=== PATIENT | female | born 1955 | race Hispanic/Latino ===

== ENCOUNTER 2019-01-11 12:11 | Emergency (ER) | payer SELFPAY ==
[~2019-01-11] VITALS: Ht 165.1 cm; Wt 70.8 kg
[~2019-01-11 12:11] MED LIST: LEVOTHYROXINE75 MCG PO; LOSARTAN-HCTZ1 EAC2 PO; LOVASTATIN40 MG PO
--- OUTSIDE RECORDS SUMMARY | 2019-01-11 12:15 | XMS REPORT | Encounter Summary ---
Author Organization Unknown Address [address] [place] [address] Phone [phone] Care Team Providers Care Nutrition Teacher Name Role Phone Dr. Leif Fernandez 3 [phone] Jarad Schultz MD 126 [phone] Rukhsana Bianen OD 240 [phone] Reason for Visit Hypertensive disorder; Right ear pain/problem Instructions 1. Benign essential hypertension losartan 100 mg-hydrochlorothiazide 25 mg tablet amlodipine 10 mg tablet 2. Impacted cerumen in right ear 3. Screening for malignant neoplasm of colon 4. Screening for malignant neoplasm of breast MAMMO, screening, digital, bilateral - Nigerian Speaking Please call patient and schedule her an appointment. 5. Immunization Prevnar 13 (PF) 0.5 mL intramuscular syringe 6. Screening for osteoporosis bone density - Nigerian Speaking Please call patient and schedule her an appointment. Discussion Note: None recorded. Patient educational handouts: No information available. Plan of Care Reminders Provider Appointments Est Patient 10/06/2018 8:00AM Leif Luevano MD Lab None recorded. Referral None recorded. Procedures None recorded. Surgeries None recorded. Imaging MAMMO, Screening, Digital, Bilateral 09/08/2018 [facility] Bone Density 09/08/2018 [facility] Medications Name Start Date amlodipine 10 mg tablet Take 1 tablet every day by oral route as directed for 90 days. amlodipine 5 mg tablet Take 1 tablet every day by oral route as directed for 30 days. losartan 100 mg-hydrochlorothiazide 25 mg tablet Take 1 tablet every day by oral route. Medications Administered None recorded. Vitals Height Weight BMI Blood Pressure 5 ft 4 in 163.4 lbs 28 kg/m2 (1) 182/78 mm[Hg] (2) 180/82 mm[Hg] Lab Results None recorded. Allergies Code Code System Name Reaction Severity Status Onset NKDA Problems Name Status Onset Date Source Hypertensive Disorder Active 04/21/2018 Family History of Alzheimer's Disease Active 07/02/2018 Procedures Date Name Performed by 04/30/2018 Screening for Occult Blood in Feces Information not available Colonoscopy with Biopsy Information not available 09/08/2018 MAMMO, Screening, Digital, Bilateral [facility] [address] [place], [place] [id number] (Work Place) 09/08/2018 Bone Density [facility] [address] [place], [place] [id number] (Work Place) Vaccine List Vaccine Type influenza, unspecified formulation 03/18/2018 pneumococcal conjugate PCV 13 09/08/20180.5 mL Social History Smoking Status Never Smoker Past Encounters 09/08/2018 Benign Essential Hypertension; Impacted Cerumen in Right Ear; Screening for Malignant Neoplasm of Colon; Screening for Malignant Neoplasm of Breast; Immunization; Screening for Osteoporosis Leif Luevano MD: [address] [place] [phone], Ph. History of Present Illness Note:R ear tinnitus, hearing loss and pain since 3 days ago. Denies runny nose, nasal congestion, sore throat or cough.<div>BPs at home 150-160s/80-90s.</div> Review of Systems:ROS as noted in the HPI Review of Systems None recorded. Physical Exam General Adult Exam (male) Reported By: Patient Constitutional: General Appearance: healthy-appearing, overweight. Level of Distress: NAD. Ambulation: ambulating normally Psychiatric: Insight: good judgement. Mental Status: active and alert, normal mood, normal affect. Orientation: to time, to place, to person. Memory: recent memory normal, remote memory normal Eyes: Lids and Conjunctivae: non-injected, no discharge. EOM: EOMI ENMT: Ears: TMs clear, EAC ceruminous. Nose: no sinus tenderness. Lips, Teeth, and Gums: no mouth or lip ulcers. Oropharynx: moist mucous membranes, no erythema, no exudates Neck: Neck: supple, trachea midline. Lymph Nodes: no cervical LAD. Thyroid: no enlargement, non-tender Lungs: Auscultation: breath sounds normal Cardiovascular: Heart Auscultation: RRR, normal S1, normal S2, no murmurs. Neck vessels: no carotid bruits Musculoskeletal:: Motor Strength and Tone: normal, normal tone. Joints, Bones, and Muscles: normal movement of all extremities. Extremities: no edema Neurologic: Gait and Station: normal gait Skin: Inspection and palpation: no rash, no lesions
--- OUTSIDE RECORDS SUMMARY | 2019-01-11 12:15 | XMS REPORT | Encounter Summary ---
Author Organization Unknown Address [address] [place] [address] Phone [phone] Care Team Providers Care Swimming Pool Plasterer Helper Name Role Phone Dr. Leif Fernandez 3 [phone] Jarad Schultz MD 126 [phone] Reason for Visit lab only visit Instructions 1. Raised TSH level T4, free, serum T3, free, serum or plasma Discussion Note: None recorded. Patient educational handouts: No information available. Plan of Care Reminders Provider Appointments None recorded. Lab T4, Free, Serum 05/13/2018 [facility] T3, Free, Serum or Plasma 05/13/2018 [facility] Referral None recorded. Procedures None recorded. Surgeries None recorded. Imaging None recorded. Medications Name Start Date amlodipine 5 mg tablet Take 1 tablet every day by oral route as directed for 30 days. calcium PRN losartan 100 mg-hydrochlorothiazide 25 mg tablet Take 1 tablet every day by oral route. vitamin E PRN Medications Administered None recorded. Vitals None recorded. Lab Results Date Name Specimen Result Interpretation Description Value Range Status Address 04/21/2018 Lipid Panel, Serum High Cholesterol, Total 224 mg/dL <200 mg/dL Final [facility]: [address] Normal HDL Cholesterol 55 mg/dL >50 mg/dL Final [facility]: [address] Normal Triglycerides 123 mg/dL <150 mg/dL Final [facility]: [address] High LDL-cholesterol 144 mg/dL (calc) Final [facility]: [address] Normal Chol/hdlc Ratio 4.1 (calc) <5.0 (calc) Final [facility]: [address] High Non HDL Cholesterol 169 mg/dL (calc) <130 mg/dL (calc) Final [facility]: [address] 04/21/2018 CBC W/ Auto Diff Normal White Blood Cell Count 8.8 thousand/uL 3.8-10.8 thousand/uL Final [facility]: [address] Normal Red Blood Cell Count 4.17 million/uL 3.80-5.10 million/uL Final [facility]: [address] [place] Normal Hemoglobin 13.1 g/dL 11.7-15.5 g/dL Final [facility]: [address] Normal Hematocrit 38.3 % 35.0-45.0 % Final [facility]: [address] [place] Normal Mcv 91.8 fL 80.0-100.0 fL Final [facility]: [address] [place] Normal Mch 31.4 pg 27.0-33.0 pg Final [facility]: [address] E[address] [place] Normal Mchc 34.2 g/dL 32.0-36.0 g/dL Final [facility]: [address] [place] Normal Rdw 12.6 % 11.0-15.0 % Final [facility]: [address] [place] Normal Platelet Count 216 thousand/uL 140-400 thousand/uL Final [facility]: [address] Eraz[address] [place] Normal Mpv 12.2 fL 7.5-12.5 fL Final [facility]: [address] Eraz[address] [place] Normal Absolute Neutrophils 3951 cells/uL 4816-9072 cells/uL Final [facility]: [address] E[address] [place] Absolute Band Neutrophils Preliminary [facility]: [address] [place] Absolute Metamyelocytes Preliminary [facility]: [address] [place] Absolute Myelocytes Preliminary [facility]: [address], [place] Absolute Promyelocytes Preliminary [facility]: [address] E[address] [place] High Absolute Lymphocytes 4118 cells/uL 850-3900 cells/uL Final [facility]: [address] [place] Normal Absolute Monocytes 598 cells/uL 200-950 cells/uL Final [facility]: [address], [place] Normal Absolute Eosinophils 88 cells/uL 15-500 cells/uL Final [facility]: [address], [place] Normal Absolute Basophils 44 cells/uL 0-200 cells/uL Final [facility]: [address], [place] Absolute Blasts Preliminary [facility]: [address], [place] Absolute Nucleated RBC Preliminary [facility]: [address], [place] Normal Neutrophils 44.9 % Final [facility]: [address], [place] Band Neutrophils Preliminary [facility]: [address], [place] Metamyelocytes Preliminary [facility]: [address], [place] Myelocytes Preliminary [facility]: [address], [place] Promyelocytes Preliminary [facility]: [address], [place] Normal Lymphocytes 46.8 % Final [facility]: [address], [place] Reactive Lymphocytes Preliminary [facility]: [address], [place] Normal Monocytes 6.8 % Final [facility]: [address], [place] Normal Eosinophils 1.0 % Final [facility]: [address], [place] Normal Basophils 0.5 % Final [facility]: [address], [place] Blasts Preliminary [facility]: [address], [place] Nucleated RBC Preliminary [facility]: [address], [place] Comment(s) Preliminary [facility]: [address], [place] 04/21/2018 CMP, Serum or Plasma Low Glucose 57 mg/dL 65-99 mg/dL Final [facility]: [address], [place] Normal Urea Nitrogen (BUN) 21 mg/dL 7-25 mg/dL Final [facility]: [address], [place] Normal Creatinine 0.90 mg/dL 0.50-0.99 mg/dL Final [facility]: [address], [place] Normal eGFR Non-afr. Spanish 68 mL/min/1.73m2 > or=60 mL/min/1.73m2 Final [facility]: [address] Normal eGFR 78 mL/min/1.73m2 > or=60 mL/min/1.73m2 Final [facility]: [address] [facility] BUN/creatinine Ratio not applicable (calc) 6-22 (calc) Final [facility]: [address] [facility] Normal Sodium 138 mmol/L 135-146 mmol/L Final [facility]: [address] [facility] Normal Potassium 4.4 mmol/L 3.5-5.3 mmol/L Final [facility]: [address] [facility] Normal Chloride 100 mmol/L 98-110 mmol/L Final [facility] [address] [facility] Normal Carbon Dioxide 23 mmol/L 20-32 mmol/L Final [facility]: [address] [facility] Normal Calcium 9.3 mg/dL 8.6-10.4 mg/dL Final [facility]: [address] [facility] Normal Protein, Total 7.8 g/dL 6.1-8.1 g/dL Final [facility]: [address] Normal Albumin 4.1 g/dL 3.6-5.1 g/dL Final [facility]: [address] [facility] Globulin 3.7 g/dL (calc) 1.9-3.7 g/dL (calc) Final [facility]: [address] [facility] [facility] Normal Albumin/globulin Ratio 1.1 (calc) 1.0-2.5 (calc) Final [facility]: [address] [facility] Normal Bilirubin, Total 0.5 mg/dL 0.2-1.2 mg/dL Final [facility]: [address] [facility] Normal Alkaline Phosphatase 67 U/L 33-130 U/L Final [facility]: [address] [facility] Normal Ast 19 U/L 10-35 U/L Final [facility]: [address] [facility] Normal Alt 10 U/L 6-29 U/L Final [facility]: [address] 04/21/2018 TSH, Serum or Plasma High Tsh 5.68 mIU/L 0.40-4.50 mIU/L Final [facility]: [address] 04/21/2018 Specimen Integrity Compromised Specimen Integrity Compromised Final [facility]: [address] 04/21/2018 Culture, Urine ABNORMAL Culture, Urine, Routine see note Final [facility]: [address] Allergies Code Code System Name Reaction Severity Status Onset NKDA Problems Name Status Onset Date Source Hypertensive Disorder Active 04/21/2018 Procedures Date Name Performed by 04/30/2018 Screening for Occult Blood in Feces Information not available 03/18/2013 Colonoscopy with Biopsy Information not available 04/21/2018 MAMMO, Screening, Digital, Bilateral [facility] [address] [place] [address] (Work Place) Vaccine List Vaccine Type influenza, unspecified formulation 03/18/2018 Social History Smoking Status Never Smoker Past Encounters 05/13/2018 Raised TSH Level Leif Luevano MD: [address] [place] [phone], Ph. 04/21/2018 Adult Health Examination; Benign Essential Hypertension; Immunization; Screening for Malignant Neoplasm of Colon; Screening for Malignant Neoplasm of Breast; Body Mass Index 25-29 - Overweight; Screening for Malignant Neoplasm of Cervix; Ventricular Premature Complex Leif Luevano MD: [address] [place] [phone], Ph. History of Present Illness None recorded. Review of Systems None recorded. Physical Exam None recorded.
--- OUTSIDE RECORDS SUMMARY | 2019-01-11 12:15 | XMS REPORT | Encounter Summary ---
Author Organization Unknown Address [address] [place] [address] Phone [phone] Care Team Providers Care Optical Glass Sawyer Name Role Phone Dr. Leif Fernandez 3 [phone] Jarad Schultz MD 126 [phone] Reason for Visit Hypertensive disorder; cough Instructions 1. Degenerative joint disease of hand erythrocyte sedimentation rate by westergren method XR, hand - bilateral hand MCP joints ROSALVA (antinuclear antibodies) igg, ifa, serum rf (rheumatoid factor), serum 2. Family history of Alzheimer's disease neurology referral - [facility] PLEASE CALL PATIENT AND SCHEDULE HER AN APPOINTMENT. PLEASE FAX NOTES TO [phone]. 3. Hypertensive disorder 4. Cough 5. Raynaud's phenomenon rheumatology referral - [facility] PLESE CALL PATIENT AND SCHEDULE HER AN APPOINTMENT. PLEASE FAX NOTES TO [phone]. 6. Osteoarthritis 7. Immunization refused 8. Body mass index 25-29 - overweight aprenda acerca del peso saludable - [learning about healthy weight] Discussion Note: None recorded. Plan of Care Reminders Provider Appointments Return to Office on or around 07/04/2018 Anette Almendarez MD Lab Erythrocyte Sedimentation Rate by Westergren Method 06/06/2018 [facility] ROSALVA (Antinuclear Antibodies) Igg, Ifa, Serum 06/06/2018 [facility] Rf (Rheumatoid Factor), Serum 06/06/2018 [facility] Referral Rheumatology Referral 06/06/2018 Janie Wynn MD Neurology Referral 06/06/2018 [facility] (Neurology) Procedures None recorded. Surgeries None recorded. Imaging XR, Hand 06/06/2018 [facility] Medications Name Start Date amlodipine 5 mg tablet Take 1 tablet every day by oral route as directed for 30 days. calcium PRN losartan 100 mg-hydrochlorothiazide 25 mg tablet Take 1 tablet every day by oral route. vitamin E PRN Medications Administered None recorded. Vitals Height Weight BMI Blood Pressure 5 ft 4 in 158 lbs 27.1 kg/m2 (1) 135/70 mm[Hg] (2) 130/68 mm[Hg] Lab Results Date Name Specimen Result Interpretation Description Value Range Status Address 05/13/2018 TSH, Serum or Plasma High Tsh 7.08 mIU/L 0.40-4.50 mIU/L Final [facility]: [address] [place] 05/13/2018 CBC W/ Auto Diff Normal White Blood Cell Count 7.2 thousand/uL 3.8-10.8 thousand/uL Final [facility]: [address] [place] [address] Normal Red Blood Cell Count 4.07 million/uL 3.80-5.10 million/uL Final [facility] [address] [facility] Hemoglobin 12.6 g/dL 11.7-15.5 g/dL Final [facility]: [address] [place] [address] Normal Hematocrit 38.0 % 35.0-45.0 % Final [facility] [address] [facility] [facility] Normal Mcv 93.4 fL 80.0-100.0 fL Final [facility] [address] [facility] Normal Mch 31.0 pg 27.0-33.0 pg Final [facility]: [address] [place] [address] Normal Mchc 33.2 g/dL 32.0-36.0 g/dL Final [facility]: [address] [place] [address] Normal Rdw 13.0 % 11.0-15.0 % Final [facility] [address] [facility] [facility] Normal Platelet Count 215 thousand/uL 140-400 thousand/uL Final [facility]: [address] [place] Normal Mpv 12.1 fL 7.5-12.5 fL Final [facility] [address] [facility] [facility] Normal Absolute Neutrophils 3434 cells/uL 6990-9039 cells/uL Final [facility]: [address] [place] [address] Normal Absolute Lymphocytes 3074 cells/uL 850-3900 cells/uL Final [facility]: [address] [facility] Normal Absolute Monocytes 540 cells/uL 200-950 cells/uL Final [facility]: [address] [place] Normal Absolute Eosinophils 108 cells/uL 15-500 cells/uL Final [facility]: [address], [place] Normal Absolute Basophils 43 cells/uL 0-200 cells/uL Final [facility]: [address] [place] Normal Neutrophils 47.7 % Final [facility]: [address], [place] Normal Lymphocytes 42.7 % Final [facility]: [address], [place] Normal Monocytes 7.5 % Final [facility]: [address], [place] Normal Eosinophils 1.5 % Final [facility]: [address], [place] Normal Basophils 0.6 % Final [facility]: [address] [place] 05/13/2018 CMP, Serum or Plasma Normal Glucose 79 mg/dL 65-99 mg/dL Final [facility] [address] [facility] [facility] Normal Urea Nitrogen (BUN) 24 mg/dL 7-25 mg/dL Final [facility]: [address] [place] [address] Normal Creatinine 0.95 mg/dL 0.50-0.99 mg/dL Final [facility] [address] [facility] [facility] Normal eGFR Non-afr. Iraqi 63 mL/min/1.73m2 > or=60 mL/min/1.73m2 Final [facility] [address] [facility] [facility] Normal eGFR 73 mL/min/1.73m2 > or=60 mL/min/1.73m2 Final [facility]: [address] [place] [address] BUN/creatinine Ratio not applicable (calc) 6-22 (calc) Final [facility] [address] [facility] [facility] Normal Sodium 141 mmol/L 135-146 mmol/L Final [facility] [address] [facility] [facility] Normal Potassium 3.8 mmol/L 3.5-5.3 mmol/L Final [facility] [address] [facility] [facility] Normal Chloride 102 mmol/L 98-110 mmol/L Final [facility]: [address] [place] Normal Carbon Dioxide 26 mmol/L 20-32 mmol/L Final [facility] [address] [facility] [facility] Normal Calcium 9.2 mg/dL 8.6-10.4 mg/dL Final [facility]: [address] Normal Protein, Total 7.7 g/dL 6.1-8.1 g/dL Final [facility]: [address] Normal Albumin 4.1 g/dL 3.6-5.1 g/dL Final [facility]: [address] Normal Globulin 3.6 g/dL (calc) 1.9-3.7 g/dL (calc) Final [facility]: [address] Normal Albumin/globulin Ratio 1.1 (calc) 1.0-2.5 (calc) Final [facility]: [address] [place] [address] Normal Bilirubin, Total 0.7 mg/dL 0.2-1.2 mg/dL Final [facility]: [address] Normal Alkaline Phosphatase 61 U/L 33-130 U/L Final [facility]: [address] Normal Ast 19 U/L 10-35 U/L Final [facility]: [address] Normal Alt 11 U/L 6-29 U/L Final [facility]: [address] [place] [address] 05/13/2018 Lipid Panel, Serum High Cholesterol, Total 219 mg/dL <200 mg/dL Final [facility]: [address] Normal HDL Cholesterol 51 mg/dL >50 mg/dL Final [facility]: [address] High Triglycerides 214 mg/dL <150 mg/dL Final [facility]: [address] High LDL-cholesterol 132 mg/dL (calc) Final [facility]: [address] Normal Chol/hdlc Ratio 4.3 (calc) <5.0 (calc) Final [facility]: [address] High Non HDL Cholesterol 168 mg/dL (calc) <130 mg/dL (calc) Final [facility]: [address] 05/13/2018 T3, Free, Serum or Plasma Normal T3, Free 2.9 pg/mL 2.3- 4.2 pg/mL Final [facility]: [address] 05/13/2018 T4, Free, Serum Normal T4, Free 1.1 NG/dL 0.8-1.8 NG/dL Final [facility]: [address] Allergies Code Code System Name Reaction Severity Status Onset NKDA Problems Name Status Onset Date Source Hypertensive Disorder Active 04/21/2018 Family History of Alzheimer's Disease Active 07/02/2018 Procedures Date Name Performed by 04/30/2018 Screening for Occult Blood in Feces Information not available 03/18/2013 Colonoscopy with Biopsy Information not available 06/06/2018 XR, Hand [facility] [address] [place] [address] (Work Place) Vaccine List Vaccine Type influenza, unspecified formulation 03/18/2018 Social History Smoking Status Never Smoker Past Encounters 06/06/2018 Degenerative Joint Disease of Hand; Family History of Alzheimer's Disease; Hypertensive Disorder; Cough; Raynaud's Phenomenon; Osteoarthritis; Immunization Refused; Body Mass Index 25-29 - Overweight Anette Almendarez MD: [address] [place] [phone], Ph. 05/13/2018 Raised TSH Level Leif Luevano MD: [address] [place] [phone], Ph. History of Present Illness Note:62yo female presents for follow-up visit. Had initial visit with Dr Fernandez last month 04/21/18. Since that visit, pt saw auto body repairman in medical center for evaluation of hypertension. Will be scheduling Holter & stress test.<div> Here today for evaluation of decreased blood flow in fingers intermittently for past year. Not worse in cold. Both hands. Only affects the tips/DIP joints of th ird & fourth fingers on both hands, especially the ring fingers. Fingers can turn white, red & purple. Not painful. Does not affect feet or other fingers.</div><div>Pt is right-handed. No tingling or numbness.</div><div>Pt is also worried about early Alzheimers & memory loss. Cannot remember things. Pt's mother had Alzheimer's & at age 70. Pt has older sister who is 66yo with severe Alzheimer's in past year, wandered away from home earlier this year - very scary experience for family.</div><div>Patient states has a cough and thinks it is from the [employer] plant explosion that happened this week. </div> Review of Systems:ROS as noted in the HPI Review of Systems Comprehensive General Adult ROS Reported By: Patient Constitutional: Constitutional: no fever Eyes: Eyes: no vision change Cardiovascular: Cardiovascular: no chest pain Respiratory: Respiratory: no wheezing, no shortness of breath, cough Gastrointestinal: Gastrointestinal: no abdominal pain Musculoskeletal: Musculoskeletal: arthralgias/joint pain Neurologic: Neurologic: no loss of consciousness, no headaches; memory loss Psychiatric: Psych: no depression, no alcohol abuse, no anxiety, no suicidal thoughts Physical Exam General Adult Exam (Female), Upper Respiratory Infection Exam Comprehensive Reported By: Patient Constitutional: General Appearance: healthy-appearing, well-nourished, well-developed. Level of Distress: NAD. Ambulation: ambulating normally Psychiatric: Mental Status: active and alert, normal mood, normal affect Eyes: Lids and Conjunctivae: non-injected. Pupils: PERRLA, PERRLA. EOM: EOMI. Sclerae: non-icteric ENMT: Hearing: no hearing loss. Nose: no lesions on external nose, no sinus tenderness, normal, pink and moist. Oropharynx: moist mucous membranes Neck: Neck: symmetrical. Thyroid: non-tender, no nodules Lungs: Respiratory effort: no dyspnea. Auscultation: breath sounds normal, good air movement, no wheezing, no rales/crackles Cardiovascular: Heart Auscultation: RRR, normal S1, normal S2, no murmurs. Neck vessels: no carotid bruits. Auscultation regular rate and rhythm. Observation/Palpation of peripheral vascular system carotid pulse normal Abdomen: Bowel Sounds: normal. Inspection and Palpation: soft Musculoskeletal:: Joints, Bones, and Muscles: normal movement of all extremities, tenderness; blanching of tips/DIP joints of third & fourth fingers on both hands, especially the ring fingers. Extremities: no edema, cyanosis Neurologic: Gait and Station: normal gait Skin: Inspection and palpation: no rash. Inspection and palpation: no rash Ears: Right External auditory canal normal appearance. Left External auditory canal normal appearance. Right Tympanic membrane pearly soto, landmarks clear. Left Tympanic membrane: pearly soto, landmarks clear Oral Cavity/Mouth: Oral Mucosa: normal. Tonsils: erythema. Posterior pharynx: erythema Lymph Nodes: Cervical no palpable lymph node enlargement, no submandibular adenopathy, no posterior cervical adenopathy, no anterior cervical adenopathy
--- OUTSIDE RECORDS SUMMARY | 2019-01-11 12:15 | XMS REPORT | Encounter Summary ---
Author Organization Unknown Address [address] [place] [address] Phone [phone] Care Team Providers Care Automat Watcher Name Role Phone Dr. Leif Fernandez 3 [phone] Jarad Schultz MD 126 [phone] Reason for Visit other - see typed reason; Annual physical - female; blood pressure Instructions 1. Adult health examination lipid panel, serum CBC w/ auto diff CMP, serum or plasma TSH, serum or plasma urinalysis, dipstick 2. Benign essential hypertension losartan 100 mg-hydrochlorothiazide 25 mg tablet electrocardiogram amlodipine 5 mg tablet 3. Immunization 4. Screening for malignant neoplasm of colon fecal occult blood, stool 5. Screening for malignant neoplasm of breast MAMMO, screening, digital, bilateral - Please schedule & contact our patient. thank you 6. Body mass index 25-29 - overweight aprenda acerca del peso saludable - [learning about healthy weight] 7. Screening for malignant neoplasm of cervix gynecology referral 8. Ventricular premature complex cardiology referral - Please schedule & contact our patient. Thank you. Discussion Note: None recorded. Plan of Care Reminders Provider Appointments Return to Office on or around 05/19/2018 Leif Luevano MD Lab Fecal Occult Blood, Stool 04/21/2018 [facility] Lipid Panel, Serum 04/21/2018 [facility] CBC W/ Auto Diff 04/21/2018 [facility] CMP, Serum or Plasma 04/21/2018 [facility] TSH, Serum or Plasma 04/21/2018 [facility] Urinalysis, Dipstick 04/21/2018 [facility]) [place] Referral Gynecology Referral 04/21/2018 Mago Gomez MD Cardiology Referral 04/21/2018 Elmer Clinton MD Procedures None recorded. Surgeries None recorded. Imaging MAMMO, Screening, Digital, Bilateral 04/21/2018 [facility] Electrocardiogram 04/21/2018 [facility] ([facility]) [place] Medications Name Start Date amlodipine 5 mg tablet Take 1 tablet every day by oral route as directed for 30 days. calcium PRN losartan 100 mg-hydrochlorothiazide 25 mg tablet Take 1 tablet every day by oral route. vitamin E PRN Medications Administered None recorded. Vitals Height Weight BMI Blood Pressure 5 ft 4 in 157 lbs 26.9 kg/m2 (1) 180/86 mm[Hg] (2) 160/84 mm[Hg] Lab Results None recorded. Allergies Code Code System Name Reaction Severity Status Onset NKDA Problems Name Status Onset Date Source Hypertensive Disorder Active 04/21/2018 Procedures Date Name Performed by 03/18/2013 Colonoscopy with Biopsy Information not available 04/21/2018 MAMMO, Screening, Digital, Bilateral [facility] [address] [place] [address] (Work Place) 04/21/2018 Electrocardiogram [facility] ([facility]) [place] [address] [place] [phone] (Work Place) Vaccine List Vaccine Type influenza, unspecified formulation 03/18/2018 Social History Smoking Status Never Smoker Past Encounters 04/21/2018 Adult Health Examination; Benign Essential Hypertension; Immunization; Screening for Malignant Neoplasm of Colon; Screening for Malignant Neoplasm of Breast; Body Mass Index 25-29 - Overweight; Screening for Malignant Neoplasm of Cervix; Ventricular Premature Complex Leif Luevano MD: [address] [place] [phone], Ph. History of Present Illness Note:Coming for a physical exam and f/u on htn. Not checking BPs at home. Compliant with meds. Non compliant with diet or exercise. No side effects with meds. Review of Systems Comprehensive General Adult ROS Reported By: Patient Constitutional: Constitutional: no fever, no night sweats, no significant weight gain, no significant weight loss, no exercise intolerance Eyes: Eyes: no dry eyes, no vision change, no irritation ENMT: Ears: no difficulty hearing, no ear pain. Nose: no frequent nosebleeds, no nose problems, no sinus problems. Mouth/Throat: no sore throat, no bleeding gums, no snoring, no dry mouth, no mouth ulcers, no oral abnormalities, no teeth problems Cardiovascular: Cardiovascular: no chest pain, no arm pain on exertion, no shortness of breath when walking, no shortness of breath when lying down, no palpitations, no known heart murmur, no lightheadedness Respiratory: Respiratory: no cough, no wheezing, no shortness of breath, no coughing up blood, no sleep apnea Gastrointestinal: Gastrointestinal: no abdominal pain, no nausea, no vomiting, no constipation, normal appetite, no diarrhea, not vomiting blood, no dyspepsia, no GERD Genitourinary: Genitourinary: no incontinence, no difficulty urinating, no hematuria, no increased frequency Musculoskeletal: Musculoskeletal: no muscle aches, no muscle weakness, no arthralgias/joint pain, no back pain, no swelling in the extremities Integumentary: Skin: no abnormal mole, no jaundice, no rashes, no laceration Neurologic: Neurologic: no loss of consciousness, no weakness, no numbness, no seizures, no dizziness, no migraines, no headaches, no tremor Psychiatric: Psych: no depression, no sleep disturbances, feeling safe in a relationship, no alcohol abuse, no anxiety, no hallucinations, no suicidal thoughts Endocrine: Endocrine: no fatigue Hematologic/Lymphatic: Hematologic/Lymphatic no swollen glands, no bruising, no excessive bleeding Allergic/Immunologic: Allergy/Immunologic: no runny nose, no sinus pressure, no itching, no hives, no frequent sneezing Physical Exam General Adult Exam (male) Reported By: Patient Constitutional: General Appearance: healthy-appearing, well-developed, overweight. Level of Distress: NAD. Ambulation: ambulating normally Psychiatric: Insight: good judgement. Mental Status: active and alert, normal mood, normal affect. Orientation: to time, to place, to person. Memory: recent memory normal, remote memory normal Head: Head: normocephalic, atraumatic Eyes: Lids and Conjunctivae: non-injected, no discharge, no pallor. Pupils: PERRLA. EOM: EOMI. Lens: clear. Sclerae: non-icteric ENMT: Ears: no lesions on external ear, EACs clear, TMs clear, TM mobility normal. Hearing: no hearing loss. Nose: no lesions on external nose, nares patent, no septal deviation, nasal passages clear, no sinus tenderness, no nasal discharge. Lips, Teeth, and Gums: no mouth or lip ulcers, no bleeding gums, normal dentition. Oropharynx: moist mucous membranes, no erythema, no exudates, tonsils not enlarged Neck: Neck: supple, trachea midline, no masses. Lymph Nodes: no cervical LAD. Thyroid: no enlargement, non-tender, no nodules Lungs: Respiratory effort: no dyspnea. Auscultation: breath sounds normal, good air movement, CTA except as noted, no wheezing, no rales/crackles, no rhonchi Cardiovascular: Heart Auscultation: RRR, normal S1, normal S2, no murmurs, no rubs, no gallops. Neck vessels: no carotid bruits. Pulses including femoral / pedal: normal throughout Abdomen: Bowel Sounds: normal. Inspection and Palpation: soft, non-distended, no tenderness, no guarding, no rebound tenderness, no masses, no CVA tenderness. Liver: non-tender, no hepatomegaly. Spleen: non-tender, no splenomegaly. Hernia: none palpable Musculoskeletal:: Motor Strength and Tone: normal, normal tone. Joints, Bones, and Muscles: normal movement of all extremities, no contractures, no bony abnormalities, no malalignment, no tenderness. Extremities: no cyanosis, no edema, varicosities Neurologic: Gait and Station: normal gait, normal station. Cranial Nerves: grossly intact. Sensation: grossly intact. Reflexes: DTRs 2+ bilaterally throughout. Coordination and Cerebellum: [id number] intact, no tremor Skin: Inspection and palpation: no rash, no lesions, no jaundice. Nails: normal Back: Thoracolumbar Appearance: normal curvature
--- OUTSIDE RECORDS SUMMARY | 2019-01-11 12:15 | XMS REPORT | Encounter Summary ---
Author Organization Unknown Address [address] [place] [address] Phone [phone] Care Team Providers Care Line Welder Name Role Phone Dr. Leif Fernandez 3 [phone] Jarad Schultz MD 126 [phone] Reason for Visit lab only visit Instructions 1. Raised TSH level T4, free, serum T3, free, serum or plasma Discussion Note: None recorded. Patient educational handouts: No information available. Plan of Care Reminders Provider Appointments None recorded. Lab T4, Free, Serum 05/13/2018 [facility] T3, Free, Serum or Plasma 05/13/2018 [facility] Referral None recorded. Procedures None recorded. [...] High Tsh 7.08 mIU/L 0.40-4.50 mIU/L Final [facility]: [address] 05/13/2018 CBC W/ Auto Diff Normal White Blood Cell Count 7.2 thousand/uL 3.8-10.8 thousand/uL Final [facility]: [address] Normal Red Blood Cell Count 4.07 million/uL 3.80-5.10 million/uL Final [facility]: [address] Normal Hemoglobin 12.6 g/dL 11.7-15.5 g/dL Final [facility]: [address] Normal Hematocrit 38.0 % 35.0-45.0 % Final [facility]: [address] Normal Mcv 93.4 fL 80.0-100.0 fL Final [facility]: [address] Normal Mch 31.0 pg 27.0-33.0 pg Final [facility]: [address] Normal Mchc 33.2 g/dL 32.0-36.0 g/dL Final [facility]: [address] Normal Rdw 13.0 % 11.0-15.0 % Final [facility]: [address] Normal Platelet Count 215 thousand/uL 140-400 thousand/uL Final [facility]: [address]055 [address] Normal Mpv 12.1 fL 7.5-12.5 fL Final [facility]: [address] Normal Absolute Neutrophils 3434 cells/uL 6885-8399 cells/uL Final [facility]: [address]055 [address] Normal Absolute Lymphocytes 3074 cells/uL 850-3900 cells/uL Final [facility]: [address] Normal Absolute Monocytes 540 cells/uL 200-950 cells/uL Final [facility]: [address]055 [address] Normal Absolute Eosinophils 108 cells/uL 15-500 cells/uL Final [facility]: [address] Normal Absolute Basophils 43 cells/uL 0-200 cells/uL Final [facility]: [address] Normal Neutrophils 47.7 % Final [facility]: [address] Normal Lymphocytes 42.7 % Final [facility]: [address]055 [address] Normal Monocytes 7.5 % Final [facility]: [address] Normal Eosinophils 1.5 % Final [facility]: [address] Normal Basophils 0.6 % Final [facility]: [address] 05/13/2018 CMP, Serum or Plasma Normal Glucose 79 mg/dL 65-99 mg/dL Final [facility]: [address] Normal Urea Nitrogen (BUN) 24 mg/dL 7-25 mg/dL Final [facility]: [address]055 [address] [place] [address] Normal Creatinine 0.95 mg/dL 0.50-0.99 mg/dL Final [facility]: 9055 [address] Ortiz [address] Normal eGFR Non-afr. [place] 63 mL/min/1.73m2 > or=60 mL/min/1.73m2 Final [facility]: [address]055 [address] Normal eGFR 73 mL/min/1.73m2 > or=60 mL/min/1.73m2 Final [facility]: [address] BUN/creatinine Ratio not applicable (calc) 6-22 (calc) Final [facility]: [address] Normal Sodium 141 mmol/L 135-146 mmol/L Final [facility]: 9055 [address] [place] [address] Normal Potassium 3.8 mmol/L 3.5-5.3 mmol/L Final [facility]: 9055 [address] Normal Chloride 102 mmol/L 98-110 mmol/L Final [facility]: 9055 [address] Normal Carbon Dioxide 26 mmol/L 20-32 mmol/L Final [facility]: 9055 [address] [place] [address] Normal Calcium 9.2 mg/dL 8.6-10.4 mg/dL Final [facility]: 9055 [address] [place] [address] Normal Protein, Total 7.7 g/dL 6.1-8.1 g/dL Final [facility]: 9055 [address] Normal Albumin 4.1 g/dL 3.6-5.1 g/dL Final [facility]: [address] Normal Globulin 3.6 g/dL (calc) 1.9-3.7 g/dL (calc) Final [facility]: [address]055 [address] Normal Albumin/globulin Ratio 1.1 (calc) 1.0-2.5 (calc) Final [facility]: [address] Normal Bilirubin, Total 0.7 mg/dL 0.2-1.2 mg/dL Final [facility]: [address] Normal Alkaline Phosphatase 61 U/L 33-130 U/L Final [facility]: [address] Normal Ast 19 U/L 10-35 U/L Final [facility]: [address] Normal Alt 11 U/L 6-29 U/L Final [facility]: [address] 05/13/2018 Lipid Panel, Serum High Cholesterol, Total 219 mg/dL <200 mg/dL Final [facility]: [address] Normal HDL Cholesterol 51 mg/dL >50 mg/dL Final [facility]: [address] High Triglycerides 214 mg/dL <150 mg/dL Final [facility]: [address] High LDL-cholesterol 132 mg/dL (calc) Final [facility]: [address] [place] [address] Normal Chol/hdlc Ratio 4.3 (calc) <5.0 (calc) Final [facility]: [address] High Non HDL Cholesterol 168 mg/dL (calc) <130 mg/dL (calc) Final [facility]: [address] 05/13/2018 T3, Free, Serum or Plasma Normal T3, Free 2.9 pg/mL 2.3- 4.2 pg/mL Final [facility]: [address] 05/13/2018 T4, Free, Serum Normal T4, Free 1.1 NG/dL 0.8-1.8 NG/dL Final [facility]: [address] 04/30/2018 Fecal Occult Blood, Stool Fecal Globin by Immunochemistry not detected Final [facility]: [address] 04/21/2018 Lipid Panel, Serum High Cholesterol, Total 224 mg/dL <200 mg/dL Final [facility]: [address] Normal HDL Cholesterol 55 mg/dL >50 mg/dL Final [facility]: [address] Normal Triglycerides 123 mg/dL <150 mg/dL Final [facility]: [address] High LDL-cholesterol 144 mg/dL (calc) Final [facility]: [address] [place] Normal Chol/hdlc Ratio 4.1 (calc) <5.0 (calc) Final [facility]: [address] High Non HDL Cholesterol 169 mg/dL (calc) <130 mg/dL (calc) Final [facility]: [address] 04/21/2018 CBC W/ Auto Diff Normal White Blood Cell Count 8.8 thousand/uL 3.8-10.8 thousand/uL Final [facility]: [address] [place] Normal Red Blood Cell Count 4.17 million/uL 3.80-5.10 million/uL Final [facility]: [address] [place] Normal Hemoglobin 13.1 g/dL 11.7-15.5 g/dL Final [facility]: [address] [place] Normal Hematocrit 38.3 % 35.0-45.0 % Final [facility]: [address] [place] Normal Mcv 91.8 fL 80.0-100.0 fL Final [facility]: [address] [place] Normal Mch 31.4 pg 27.0-33.0 pg Final [facility]: [address] [place] Normal Mchc 34.2 g/dL 32.0-36.0 g/dL Final [facility]: [address] [place] Normal Rdw 12.6 % 11.0-15.0 % Final [facility]: [address] [place] Normal Platelet Count 216 thousand/uL 140-400 thousand/uL Final [facility]: [address] [place] Normal Mpv 12.2 fL 7.5-12.5 fL Final [facility]: [address] [place] Normal Absolute Neutrophils 3951 cells/uL 0250-7652 cells/uL Final [facility]: [address] [place] Absolute Band Neutrophils Preliminary [facility]: 9[address] [facility] Metamyel[facility] Preliminary [facility]: [address], [place] Absolute Myelocytes Preliminary [facility]: [address], [place] Absolute Promyelocytes Preliminary [facility]: [address], [place] High Absolute Lymphocytes 4118 cells/uL 850-3900 cells/uL Final [facility]: [address], [place] Normal Absolute Monocytes 598 cells/uL 200-950 cells/uL Final [facility]: [address], [place] Normal Absolute Eosinophils 88 cells/uL 15-500 cells/uL Final [facility]: [address], [place] Normal Absolute Basophils 44 cells/uL 0-200 cells/uL Final [facility]: [address], [place] Absolute Blasts Preliminary [facility]: [address], [place] Absolute Nucleated RBC Preliminary [facility]: [address], [place] Normal Neutrophils 44.9 % Final [facility]: [address], [place] Band Neutrophils Preliminary [facility]: [address], [place] Metamyelocytes Preliminary [facility]: [address], [place] Myelocytes Preliminary [facility]: [address], [place] Promyelocytes Preliminary [facility]: [address], [place] Normal Lymphocytes 46.8 % Final [facility]: [address], [place] Reactive Lymphocytes Preliminary [facility]: [address], [place] Normal Monocytes 6.8 % Final [facility]: [address], [place] Normal Eosinophils 1.0 % Final [facility]: [address], [place] Normal Basophils 0.5 % Final [facility]: [address], [place] Blasts Preliminary [facility]: [address], [place] Nucleated RBC Preliminary [facility]: [address], [place] Comment(s) Preliminary [facility]: [address], [place] 04/21/2018 CMP, Serum or Plasma Low Glucose 57 mg/dL 65-99 mg/dL Final [facility]: [address], [place] Normal Urea Nitrogen (BUN) 21 mg/dL 7-25 mg/dL Final [facility]: [address] [facility] Creatinine 0.90 mg/dL 0.50-0.99 mg/dL Final [facility]: [address] [facility] Normal eGFR Non-afr. [place] 68 mL/min/1.73m2 > or=60 mL/min/1.73m2 Final [facility]: [address] [facility] Normal eGFR 78 mL/min/1.73m2 > or=60 mL/min/1.73m2 Final [facility]: [address] BUN/creatinine Ratio not applicable (calc) 6-22 (calc) Final [facility]: [address] [facility] Normal Sodium 138 mmol/L 135-146 mmol/L Final [facility]: [address] Normal Potassium 4.4 mmol/L 3.5-5.3 mmol/L Final [facility]: [address] Normal Chloride 100 mmol/L 98-110 mmol/L Final [facility]: [address] Normal Carbon Dioxide 23 mmol/L 20-32 mmol/L Final [facility]: [address] [facility] Normal Calcium 9.3 mg/dL 8.6-10.4 mg/dL Final [facility]: [address] [place] [address] Normal Protein, Total 7.8 g/dL 6.1-8.1 g/dL Final [facility]: [address] Normal Albumin 4.1 g/dL 3.6-5.1 g/dL Final [facility]: [address] [place] [address] Normal Globulin 3.7 g/dL (calc) 1.9-3.7 g/dL (calc) Final [facility]: [address] Normal Albumin/globulin Ratio 1.1 (calc) 1.0-2.5 (calc) Final [facility]: [address] Normal Bilirubin, Total 0.5 mg/dL 0.2-1.2 mg/dL Final [facility]: [address] [place] [address], [place] Normal Alkaline Phosphatase 67 U/L 33-130 U/L Final [facility]: [address] Normal Ast 19 U/L 10-35 U/L Final [facility]: [address] Normal Alt 10 U/L 6-29 U/L Final [facility]: [address] [place] [address], [place] 04/21/2018 TSH, Serum or Plasma High Tsh 5.68 mIU/L 0.40-4.50 mIU/L Final [facility]: [address] [place] [address], [place] 04/21/2018 Specimen Integrity Compromised Specimen Integrity Compromised Final [facility]: [address] [address], [place] 04/21/2018 Culture, Urine ABNORMAL Culture, Urine, Routine see note Final [facility]: [address] [place] [address], [place] 04/21/2018 Urinalysis, Dipstick Color Color yellow [facility] ([facility] [place]: [address] [place] Color Appearance clear [facility] ([facility] [place]: [address] [place] Color Glucose negative [facility] ([facility] [place]: [address] [place] Color Bilirubin negative [facility] ([facility] [place]: [address] [place] Color Ketones trace [facility] ([facility]) [place]: [address] [place] Color Specific [place] 1.030 [facility] ([facility] [place]: [address] [place] Color Blood negative [facility] [place]: [address] [place] Color PH 5.[address] [facility] [place]: [address] [place] Color Protein trace [facility] ([facility]) [place]: [address] [place] Color Urobilinogen 0.[address] [facility] ([facility] [place]: [address] [place] Color Nitrites negative [facility] ([facility] [place]: [address] [place] Color Leukocytes trace [facility] ([facility] [place]: [address] [facility] Allergies Code Code System Name Reaction Severity Status Onset NKDA Problems Name Status Onset Date Source Hypertensive Disorder Active 04/21/2018 Procedures Date Name Performed by 04/30/2018 Screening for Occult Blood in Feces Information not available 03/18/2013 Colonoscopy with Biopsy Information not available 04/21/2018 MAMMO, Screening, Digital, Bilateral [facility] [address] [place] [address] (Work Place) Vaccine List Vaccine Type influenza, unspecified formulation 03/18/2018 Social History Smoking Status Never Smoker Past Encounters 05/13/2018 Raised TSH Level Leif Luevano MD: [address] [place] [address], Ph. 04/21/2018 Adult Health Examination; Benign Essential Hypertension; Immunization; Screening for Malignant Neoplasm of Colon; Screening for Malignant Neoplasm of Breast; Body Mass Index 25-29 - Overweight; Screening for Malignant Neoplasm of Cervix; Ventricular Premature Complex Leif Luevano MD: [address] [place] [address], Ph. History of Present Illness None recorded. Review of Systems None recorded. Physical Exam None recorded.
[2019-01-11] MEDS ORDERED: HYDROCODONE/APAP 7.5MG-325MG 1 EA TAB PO ONE (12:45)
--- NOTE | 2019-01-11 14:22 | Diagnostic Imaging Report ---
EXAMINATION: CHEST 2 VIEWS INDICATION: ^COUGH ^[id number] ^[id number] COMPARISON: None FINDINGS: PA and lateral views TUBES and LINES: None. LUNGS: Lungs are well inflated. Diffuse bilateral lower lobe predominant reticular opacities and bilateral hilar peribronchial wall thickening. No lobar consolidations. PLEURA: No pleural effusion or pneumothorax. HEART AND MEDIASTINUM: The cardiac silhouette is prominent. BONES AND SOFT TISSUES: No acute osseous lesion. Soft tissues are unremarkable. UPPER ABDOMEN: No free air under the diaphragm. IMPRESSION: Prominent cardiac silhouette with associated reticular opacities in the lungs are suggestive of mild interstitial edema. Differential diagnosis includes atypical infection. Recommend follow-up chest radiograph in 4-6 weeks. Signed by: Dr. Susie Dailey M.D. on 01/11/2019 2:19 PM
--- NOTE | 2019-01-11 14:26 | NUR ---
still waiting on xray results
--- NOTE | 2019-01-11 14:37 | Diagnostic Imaging Report ---
RIGHT-SIDED rib series- 7 VIEWS HISTORY: ^RIGHT ANTERIOR CW PAIN AFTER FALL, COUGH ^[id number] ^[id number] COMPARISON: Chest radiograph 01/11/2019 FINDINGS: Bones: No acute displaced fracture. Osseous alignment is within normal limits. Joints: The joint spaces are well-maintained. Soft tissues: The soft tissues appear unremarkable. Bilateral interstitial edema. IMPRESSION: No acute radiographic abnormality. Signed by: Dr. Susie Dailey M.D. on 01/11/2019 2:34 PM
[2019-01-11 15:18] VITALS: BP 200/86
== END 2019-01-11 15:21 | disposition home or self-care (01) ==
LOC: ER 12:11
DX: S20.211A Contusion of right front wall of thorax, initial encounter (principal); J20.9 Acute bronchitis, unspecified; W01.0XXA Fall on same level from slipping, tripping and stumbling without subsequent striking against object, initial encounter; Y93.01 Activity, walking, marching and hiking; Y92.008 Other place in unspecified non-institutional (private) residence as the place of occurrence of the external cause; I10 Essential (primary) hypertension
CPT/HCPCS: 71046; 71101; 99283

== ENCOUNTER 2020-08-02 20:34 | Emergency (ER) | payer MEDICARE ==
[~2020-08-02] VITALS: Ht 165.1 cm; Wt 70.8 kg
[2020-08-02] MEDS ORDERED: ASPIRIN 81 MG CHEW TAB PO ONE (21:00)
[2020-08-02] MEDS ORDERED: CLONIDINE HCL 0.1 MG TAB PO ONE (21:00)
[2020-08-02] MEDS ORDERED: AMLODIPINE BESYLATE 10 MG TAB PO ONE (21:00)
[2020-08-02] MEDS ORDERED: LOSARTAN POTASSIUM 100 MG TAB PO ONE (21:00)
[2020-08-02 21:05] LABS: BASOPHILS % 0.3 % (0.0-1.0); EOSINOPHILS # (AUTO) 0.2 (0.0-0.4); EOSINOPHILS % 2.3 % (0.0-6.0); HEMATOCRIT 38.3 % (34.2-44.1); HEMOGLOBIN 12.6 g/dL (12.0-16.0); LYMPHOCYTES # (AUTO) 3.3 (1.0-3.2); LYMPHOCYTES % 45.3 % (18.0-39.1); MEAN CORPUSCULAR HEMOGLOBIN 30.4 pg (28-32); MEAN CORPUSCULAR HGB CONC 32.9 g/dL (31-35); MEAN CORPUSCULAR VOLUME 92.3 fL (81-99); MONOCYTES # (AUTO) 0.6 (0.2-0.8); MONOCYTES % 8.6 % (4.4-11.3); NEUTROPHILS # (AUTO) 3.1 (2.1-6.9); NEUTROPHILS % 43.4 % (38.7-80.0); PLATELET COUNT 186 x10e3/uL (140-360); RED BLOOD COUNT 4.15 x10e6/uL (3.6-5.1); RED CELL DISTRIBUTION WIDTH 12.6 % (11.7-14.4)
[2020-08-02 21:23] LABS: ALBUMIN 3.7 g/dL (3.5-5.0); ALBUMIN/GLOBULIN RATIO 0.9 (0.8-2.0); ANION GAP 15.2 mmol/L (8-16); CALCIUM 9.3 mg/dL (8.4-10.2); CREATININE, SERUM 0.94 mg/dL (0.57-1.11); POTASSIUM 4.2 mmol/L (3.5-5.1)
[2020-08-02 21:29] LABS: CREATINE KINASE MB 0.7 ng/mL (0-5.0)
[2020-08-02] MEDS ORDERED: HYDRALAZINE HCL 20 MG/ML VIAL IV STA (22:11)
[2020-08-03 00:13] VITALS: BP 181/96
== END 2020-08-03 00:05 | disposition home or self-care (01) ==
LOC: ER 20:57
DX: I16.0 Hypertensive urgency (principal); R00.1 Bradycardia, unspecified; I10 Essential (primary) hypertension
CPT/HCPCS: 36415; 80053; 82550; 82553; 84484; 85025; 93005; 99284; J0360

== ENCOUNTER 2021-08-10 13:01 | Emergency (ER) | payer MEDICARE, OTHER ==
[~2021-08-10] VITALS: Ht 165.1 cm; Wt 70.8 kg
[2021-08-10] MEDS ORDERED: HYDRALAZINE HCL 20 MG/ML VIAL IV STA (13:16)
[2021-08-10] MEDS ORDERED: LIPITOR10 MG PO (13:48)
[2021-08-10] MEDS ORDERED: BENICAR20 MG PO (13:48)
[2021-08-10 13:51] LABS: BASOPHILS % 0.5 % (0.0-1.0); EOSINOPHILS # (AUTO) 0.2 (0.0-0.4); EOSINOPHILS % 2.1 % (0.0-6.0); HEMATOCRIT 40.7 % (34.2-44.1); HEMOGLOBIN 12.9 g/dL (12.0-16.0); LYMPHOCYTES # (AUTO) 3.5 (1.0-3.2); LYMPHOCYTES % 43.1 % (18.0-39.1); MEAN CORPUSCULAR HEMOGLOBIN 29.6 pg (28-32); MEAN CORPUSCULAR HGB CONC 31.7 g/dL (31-35); MEAN CORPUSCULAR VOLUME 93.3 fL (81-99); MONOCYTES # (AUTO) 0.6 (0.2-0.8); MONOCYTES % 7.4 % (4.4-11.3); NEUTROPHILS # (AUTO) 3.8 (2.1-6.9); NEUTROPHILS % 46.8 % (38.7-80.0); PLATELET COUNT 202 x10e3/uL (140-360); RED BLOOD COUNT 4.36 x10e6/uL (3.6-5.1); RED CELL DISTRIBUTION WIDTH 13.1 % (11.7-14.4)
[2021-08-10 14:08] LABS: CALCIUM 8.7 mg/dL (8.4-10.2); CREATININE, SERUM 0.94 mg/dL (0.57-1.11)
== END 2021-08-10 15:07 | disposition home or self-care (01) ==
LOC: ER 13:04
DX: I10 Essential (primary) hypertension (principal)
CPT/HCPCS: 36415; 71045; 80048; 83880; 84484; 85025; 93005; 99284; J0360

== ENCOUNTER → 2021-11-16 | Outpatient (CLI) | payer OTHER ==
[~2021-11-16] MED LIST changes: +BENICAR20 MG PO; +LIPITOR10 MG PO
== END ==
LOC: MRI 08:16
PROVIDERS: ATTEND Internal Medicine
DX: Z12.31 Encounter for screening mammogram for malignant neoplasm of breast (principal); M85.88 Other specified disorders of bone density and structure, other site; F03.90 Unspecified dementia, unspecified severity, without behavioral disturbance, psychotic disturbance, mood disturbance, and anxiety
CPT/HCPCS: 70551; 77067; 77080

== ENCOUNTER 2022-01-04 11:58 | Emergency (ER) | payer MEDICARE, OTHER ==
[~2022-01-04] VITALS: Ht 165.1 cm; Wt 70.8 kg
[2022-01-04] MEDS ORDERED: HYDRALAZINE HCL 20 MG/ML VIAL IV STA (12:33)
[2022-01-04 12:53] LABS: BASOPHILS % 0.4 % (0.0-1.0); EOSINOPHILS # (AUTO) 0.1 (0.0-0.4); EOSINOPHILS % 0.9 % (0.0-6.0); HEMATOCRIT 43.8 % (34.2-44.1); LYMPHOCYTES # (AUTO) 2.3 (1.0-3.2); LYMPHOCYTES % 30.2 % (18.0-39.1); MEAN CORPUSCULAR HEMOGLOBIN 30.5 pg (28-32); MEAN CORPUSCULAR VOLUME 95.4 fL (81-99); MONOCYTES # (AUTO) 0.5 (0.2-0.8); MONOCYTES % 5.8 % (4.4-11.3); NEUTROPHILS # (AUTO) 4.8 (2.1-6.9); NEUTROPHILS % 62.4 % (38.7-80.0); PLATELET COUNT 214 x10e3/uL (140-360); RED BLOOD COUNT 4.59 x10e6/uL (3.6-5.1); RED CELL DISTRIBUTION WIDTH 12.2 % (11.7-14.4)
[2022-01-04 13:23] LABS: ALBUMIN/GLOBULIN RATIO 0.9 (0.8-2.0); CALCIUM 9.3 mg/dL (8.4-10.2); CREATININE, SERUM 0.98 mg/dL (0.57-1.11)
== END 2022-01-04 15:25 | disposition home or self-care (01) ==
LOC: ER 12:30
DX: I16.0 Hypertensive urgency (principal); I10 Essential (primary) hypertension; E78.5 Hyperlipidemia, unspecified; E03.9 Hypothyroidism, unspecified
CPT/HCPCS: 36415; 80053; 84484; 85025; 93005; 99283; J0360

== ENCOUNTER 2022-05-20 20:22 | Inpatient (IN) | payer MEDICARE ==
[~2022-05-20] VITALS: Ht 167.6 cm; Wt 83.0 kg
[2022-05-20 21:52] VITALS: BP 197/79
[2022-05-20] MEDS ORDERED: LEVOTHYROXINE50 MCG PO (22:34)
[2022-05-20] MEDS ORDERED: DONEPEZIL HCL5 MG PO (22:34)
[2022-05-20] MEDS ORDERED: ATORVASTATIN CA40 MG PO (22:34)
[2022-05-20] MEDS ORDERED: AMLODIPINE BESY10 MG PO (22:34)
[2022-05-20] MEDS ORDERED: OLMESARTAN MEDO40 MG PO (22:34)
[2022-05-20 23:19] VITALS: BP 197/79
[2022-05-20 23:28] VITALS: BP 197/79
[2022-05-21] VITALS (9 sets, daily range): BP systolic 145–200; BP diastolic 56–83
[2022-05-21 05:54] LABS: CREATINE KINASE MB 0.9 ng/mL (0-5.0)
[2022-05-21] MEDS: LEVOTHYROXINE SODIUM 50 MCG TAB PO SCH (08:34)
[2022-05-21] MEDS ORDERED: OLMESARTAN 20 MG TAB PO SCH (09:00)
[2022-05-21 12:13] LABS: CREATINE KINASE MB 0.8 ng/mL (0-5.0)
[2022-05-21] MEDS ORDERED: ACETAMINOPHEN 325 MG TAB PO PRN (18:30)
[2022-05-21] MEDS ORDERED: POLYETHYLENE GLYCOL 3350 17 GM PACK PO PRN (18:30)
[2022-05-21] MEDS ORDERED: ONDANSETRON HCL INJ 2MG/ML 2ML 2 MG/ML VIAL IV PRN (18:30)
[2022-05-21] MEDS ORDERED: OLMESARTAN MEDOXOMIL 5 MG TABLET PO STA (18:56)
[2022-05-21] MEDS ORDERED: OLMESARTAN 20 MG TAB PO ONE (19:30)
[2022-05-21] MEDS ORDERED: ATORVASTATIN 10 MG TAB PO SCH (21:00)
[2022-05-21] MEDS ORDERED: DONEPEZIL HCL 5 MG TAB PO SCH (21:00)
[2022-05-21] MEDS ORDERED: AMLODIPINE BESYLATE 10 MG TAB PO SCH (21:00)
[2022-05-21 21:06] LABS: CREATINE KINASE MB 0.8 ng/mL (0-5.0)
[2022-05-21] MEDS: HYDRALAZINE HCL 20 MG/ML VIAL IV PRN (23:18)
[2022-05-22] VITALS: BP 162/56
[2022-05-22] MEDS: HYDRALAZINE HCL 20 MG/ML VIAL IV PRN (02:54)
[2022-05-22 04:58] LABS: BASOPHILS % 0.3 % (0.0-1.0); EOSINOPHILS # (AUTO) 0.2 (0.0-0.4); EOSINOPHILS % 1.7 % (0.0-6.0); HEMATOCRIT 42.1 % (34.2-44.1); HEMOGLOBIN 13.6 g/dL (12.0-16.0); LYMPHOCYTES % 22.2 % (18.0-39.1); MEAN CORPUSCULAR HEMOGLOBIN 30.5 pg (28-32); MEAN CORPUSCULAR HGB CONC 32.3 g/dL (31-35); MEAN CORPUSCULAR VOLUME 94.4 fL (81-99); MONOCYTES # (AUTO) 0.7 (0.2-0.8); MONOCYTES % 8.3 % (4.4-11.3); NEUTROPHILS # (AUTO) 5.9 (2.1-6.9); NEUTROPHILS % 67.2 % (38.7-80.0); PLATELET COUNT 240 x10e3/uL (140-360); RED BLOOD COUNT 4.46 x10e6/uL (3.6-5.1); RED CELL DISTRIBUTION WIDTH 12.4 % (11.7-14.4)
[2022-05-22 05:16] LABS: ALBUMIN 3.6 g/dL (3.5-5.0); ALBUMIN/GLOBULIN RATIO 0.8 (0.8-2.0); ANION GAP 12.9 mmol/L (8-16); CALCIUM 9.1 mg/dL (8.4-10.2); CHOL/HDL RATIO 4.7 (3.0-3.6); CREATININE, SERUM 1.02 mg/dL (0.57-1.11); MAGNESIUM 2.3 MG/DL (1.3-2.1); PHOSPHORUS 3.4 MG/DL (2.3-4.7); POTASSIUM 3.9 mmol/L (3.5-5.1)
[2022-05-22 05:41] LABS: THYROID STIMULATING HORMONE 9.702 uIU/mL (0.350-4.940)
[2022-05-22] MEDS: LEVOTHYROXINE SODIUM 50 MCG TAB PO SCH (07:54)
[2022-05-22 07:59] VITALS: BP 127/52
[2022-05-22] MEDS ORDERED: DOCUSATE SODIUM 100 MG CAP PO SCH (09:00)
[2022-05-22] MEDS ORDERED: OLMESARTAN 20 MG TAB PO SCH (09:00)
== END 2022-05-22 10:50 | disposition home or self-care (01) | DRG 305 ==
LOC: MED/SURG3 21:00 → OBSVTOIN 05-22 09:10
PROVIDERS: ADMIT Internal Medicine; ATTEND Internal Medicine
DX: I16.0 Hypertensive urgency (principal); I10 Essential (primary) hypertension; F03.90 Unspecified dementia, unspecified severity, without behavioral disturbance, psychotic disturbance, mood disturbance, and anxiety; I25.10 Atherosclerotic heart disease of native coronary artery without angina pectoris; R00.1 Bradycardia, unspecified; F41.9 Anxiety disorder, unspecified; E03.9 Hypothyroidism, unspecified; E11.9 Type 2 diabetes mellitus without complications; E78.5 Hyperlipidemia, unspecified; Z20.822 Contact with and (suspected) exposure to COVID-19
CPT/HCPCS: 36415; 80053; 80061; 82550; 82553; 83036; 83735; 84100; 84436; 84443; 84481; 84484; 85025; 94799; G0378